=== PATIENT | male | born 1990 | race African-American/Black ===

== ENCOUNTER 2018-01-14 19:20 | Emergency (ER) | payer OTHER ==
[~2018-01-14] VITALS: Ht 190.5 cm; Wt 108.9 kg
[~2018-01-14 19:20] MED LIST: AMOXICILLIN 50500 M1 PO; AUGMENTIN 875-1 EACH PO; CIPRODEX OTIC7.5 ML OT; FLEXERIL PO; IBUPROFEN 800800 MG PO; LOTRIMIN30 GM TP; NEO-POLYMYXIN-H10 ML OT; NORCO 5-325 TA1 EACH PO; PREDNISONE 20 M20 M1 PO; PROVENTIL; ULTRAM 50MG TAB50 MG PO; ZYRTEC10 M2 PO
[2018-01-14] MEDS ORDERED: MAPAP500 MG PO (19:33)
[2018-01-14] MEDS ORDERED: DESOXYN5 MG PO (19:34)
[2018-01-14 21:32] VITALS: BP 168/78
== END 2018-01-14 21:35 | disposition home or self-care (01) ==
LOC: ER 19:20
DX: F07.81 Postconcussional syndrome (principal); F41.9 Anxiety disorder, unspecified; S09.90XD Unspecified injury of head, subsequent encounter; X58.XXXD Exposure to other specified factors, subsequent encounter